=== PATIENT | female | born 1995 | race Caucasian/White ===

== ENCOUNTER 2018-12-03 02:19 | Emergency (ER) | payer BC, OTHER ==
--- NOTE | 2018-12-03 02:28 | EDPHY ---
H & P Stated Complaint: possible pill stuck in throat-able to drink Time Seen by Provider: 12/03/18 02:27 HPI/ROS: HPI CHIEF COMPLAINT: Possible pill stuck in throat. HISTORY OF PRESENT ILLNESS: Patient is a 23-year-old female, otherwise healthy , has a history of anxiety and takes air truly in for this, presents to the emergency room after she states that she got a sertraline pill stuck in the back of her throat. She took this around 12:30 a.m.. It is now 2:30 a.m.. She states she took the medication without any assistance of a glass of water which she normally does not do. She felt some discomfort in the back of her throat. She has not been coughing denies choking. States it just islas in the back of her throat nail. She does not have significant pain when she swallows. She is able to handle p.o. Fluids. Denies trouble breathing. Past Medical History: Denies medical history except for anxiety Past Surgical History: Ovarian cyst, appendectomy, pilonidal cyst Social History: Denies drugs alcohol tobacco. Family History: Noncontributory ROS REVIEW OF SYSTEMS: 10 Systems were reviewed and negative with the exception of the elements mentioned in the history of present illness. Exam Constitutional appears well nontoxic triage nursing summary reviewed, vital signs reviewed, awake/alert. Eyes normal conjunctivae and sclera, EOMI, PERRLA. HENT posterior pharynx unremarkable on exam, no stridor, able swallow appropriately, normal inspection, atraumatic, moist mucus membranes, no epistaxis, neck supple/ no meningismus, no raccoon eyes. Respiratory clear to auscultation bilaterally, normal breath sounds, no respiratory distress, no wheezing. Cardiovascular rate normal, regular rhythm, no murmur, no edema, distal pulses normal. Gastrointestinal soft, non-tender, no rebound, no guarding, normal bowel sounds, no distension, no pulsatile mass. Genitourinary no CVA tenderness. Musculoskeletal no midline vertebral tenderness, full range of motion, no calf swelling, no tenderness of extremities, no meningismus, good pulses, neurovascularly intact. Skin pink, warm, & dry, no rash, skin atraumatic. Neurologic awake, alert and oriented x 3, AAOx3, moves all 4 extremities equally, motor intact, sensory intact, CN II-XII intact, normal cerebellar, normal vision, normal speech. Psychiatric normal mood/affect. Heme/Lymph/Immune no lymphadenopathy. Differential Diagnosis: Includes but is not limited to in a particular order foreign body in posterior pharynx, foreign body in airway, posterior pharynx irritation, scratch the posterior pharynx, retained pill Medical Decision Making: Plan for this patient GI cocktail, p.o. Fluids. Re- evaluate. Re-evaluation: 0343: Patient re-evaluated this time resting comfortably. P.o. Challenge well. Denies any throat pain or esophageal foreign body sensation or throat foreign body sensation. Feels much better would like to be discharged. She drank well here in emergency with any further symptoms. Return precautions discussed with her Source: Patient - Personal History Current Tetanus Diphtheria and Acellular Pertussis (TDAP): Yes - Medical/Surgical History Hx Asthma: No Hx Chronic Respiratory Disease: No Hx Diabetes: No Hx Cardiac Disease: No Hx Renal Disease: No Hx Cirrhosis: No Hx Alcoholism: No Hx HIV/AIDS: No Hx Splenectomy or Spleen Trauma: No Other PMH: anxiety - Social History Smoking Status: Never smoked Constitutional: Initial Vital Signs Temperature (C) 36.6 C 12/03/18 02:22 Heart Rate 68 12/03/18 02:22 Respiratory Rate 16 12/03/18 02:22 Blood Pressure 138/78 H 12/03/18 02:22 O2 Sat (%) 98 12/03/18 02:22 O2 Delivery Mode Room Air Allergies/Adverse Reactions: No Known Allergies Allergy (Unverified 12/03/18 02:22) Home Medications: Medication Instructions Recorded Sertraline HCl 12/03/18 Medical Decision Making - Data Points Medications Given: Discontinued Medications Al Hydroxide/Mg Hydroxide (Maalox Susp) 30 ml PO ONCE ONE Stop: 12/03/18 02:32 Last Admin: 12/03/18 02:51 Dose: 30 ml Hyoscyamine Sulfate (Levsin, Hyomax-Sl) 0.25 mg PO ONCE ONE Stop: 12/03/18 02:32 Last Admin: 12/03/18 02:50 Dose: 0.25 mg Lidocaine (Lidocaine 2% Viscous) 15 ml PO ONCE ONE Stop: 12/03/18 02:32 Last Admin: 12/03/18 02:51 Dose: 15 ml Departure - Departure Disposition: Home, Routine, Self-Care Clinical Impression: Foreign body in throat Qualifiers: Encounter type: initial encounter Qualified Code(s): T17.208A - Unspecified foreign body in pharynx causing other injury, initial encounter Condition: Good Instructions: Foreign Body in Pharynx (ED) Additional Instructions: 1. Return to the emergency room if you have worsening pain, not doing well, vomiting, fever Referrals: Patient,NotPresent [Unknown] - As per Instructions
[2018-12-03] MEDS ORDERED: HYOSCYAMINE SULFATE 0.125 MG TAB PO ONE (02:31)
[2018-12-03] MEDS ORDERED: LIDOCAINE 2% VISCOUS 15 ML UDCUP PO ONE (02:31)
[2018-12-03] MEDS ORDERED: MAG HYDROX/AL HYDROX/SIMETH 30 ML UDCUP PO ONE (02:31)
[2018-12-03 03:52] VITALS: BP 118/72
== END 2018-12-03 03:51 | disposition home or self-care (01) ==
DX: T17.208A Unspecified foreign body in pharynx causing other injury, initial encounter (principal); Y92.9 Unspecified place or not applicable